=== PATIENT | female | born 1930 | race Caucasian/White ===

== ENCOUNTER 2019-08-31 14:58 | Emergency (ER) | payer MEDICARE, OTHER ==
--- NOTE | 2019-08-31 16:22 | EDM.PDOC ---
ED HPI GENERAL MEDICAL PROBLEM - General Chief Complaint: Syncope Stated Complaint: SYNCOPE/FALL-HEAD INJURY Time Seen by Provider: 08/31/19 15:24 Source of Information: Reports: Patient, RN Notes Reviewed - History of Present Illness INITIAL COMMENTS - FREE TEXT/NARRATIVE: 88-year-old female presents to ED today for evaluation after suffering a syncopal event yesterday. He was doing some housecleaning. He had some type of cleaning towel or mop attached to her broom so she could "white the dust off of the soliz of her home". While she was doing that she started to feel lightheaded and dizzy. She states she was going this finding a chair to sit down but her legs gave out on her before she could do that and she fell onto her left buttock. She states she is able to "get up right away" to a recliner and rested for a period of time and since then has felt back to normal. She's had no chest pain nausea or vomiting. She states she did not hit her head and has no head or neck discomfort. She does sometimes get lightheaded and dizzy when standing up in scientology but has not had to the point of near syncope like she did yesterday. She has no known history for coronary artery disease, hypertension or diabetes. She takes very few medications, mostly vitamins. - Related Data Allergies Allergy/AdvReac Type Severity Reaction Status Date / Time No Known Allergies Allergy Verified 08/31/19 15:27 Home Meds: Home Meds Ascorbate Calcium [Vitamin C] 500 mg PO DAILY 08/31/19 [History] Aspirin [Halfprin] 81 mg PO DAILY 08/31/19 [History] Cholecalciferol (Vitamin D3) [Vitamin D] 1,000 unit PO DAILY 08/31/19 [History] Chondroitin Sulfate A Sodium [Chondroitin Sulfate] 150 mg PO DAILY 08/31/19 [ History] Ginkgo Biloba 80 mg PO DAILY 08/31/19 [History] Glucosamine/D3/Boswellia Brunilda [Glucosamine Complex Tablet] 1,500 mg PO DAILY [History] Levothyroxine [Synthroid] 50 mcg PO DAILY 08/31/19 [History] Magnesium 400 mg PO DAILY 08/31/19 [History] Multivitamin [Multivitamins] 1 cap PO DAILY 08/31/19 [History] Simvastatin 5 mg PO DAILY 08/31/19 [History] Past Medical History Cardiovascular History: Reports: High Cholesterol Social & Family History - Tobacco Use Smoking Status *Q: Never Smoker - Caffeine Use Caffeine Use: Reports: Coffee - Recreational Drug Use Recreational Drug Use: No ED ROS GENERAL - Review of Systems Review Of Systems: See Below Constitutional: Denies: Fever, Chills, Diaphoresis HEENT: Reports: No Symptoms Respiratory: Denies: Shortness of Breath Cardiovascular: Denies: Chest Pain GI/Abdominal: Denies: Abdominal Pain, Nausea, Vomiting Musculoskeletal: Denies: Shoulder Pain, Arm Pain, Back Pain Skin: Denies: Rash Neurological: Reports: Dizziness. Denies: Headache (Gone), Numbness, Tingling, Trouble Speaking, Difficulty Walking, Weakness - Physical Exam Exam: See Below General Appearance: Alert, No Apparent Distress Eye Exam: Bilateral Eye: PERRL Throat/Mouth: Normal Inspection, Normal Oropharynx Head Exam: Atraumatic Neck: Supple Respiratory/Chest: No Respiratory Distress, Lungs Clear, Normal Breath Sounds, Chest Non-Tender Cardiovascular: Regular Rate, Rhythm GI/Abdominal: Soft, Non-Tender Neuro Exam (Abbreviated): Alert, Oriented Back Exam: Normal Inspection. No: Paraspinal Tenderness, Vertebral Tenderness Extremities: Normal Inspection, Normal Range of Motion Skin Exam: Warm, Dry, Normal Color EKG INTERPRETATION EKG Date: 08/31/19 Rhythm: NSR Niotaze: Normal P-Wave: Present QRS: Other (q waves lead III, no st elevation or depresion.) ST-T: Normal Course - Vital Signs Last Recorded V/S: Last Vital Signs Temp 96.5 F 08/31/19 15:39 Pulse 91 08/31/19 15:39 Resp 20 08/31/19 15:39 BP 120/105 H 08/31/19 15:39 Pulse Ox 100 08/31/19 15:39 - Orders/Labs/Meds Labs: Laboratory Tests 08/31/19 08/31/19 Range/Units 15:56 15:56 WBC 6.30 (3.98-10.04) K/mm3 RBC 4.12 (3.98-5.22) M/mm3 Hgb 11.9 (11.2-15.7) gm/dl Hct 37.3 (34.1-44.9) % MCV 90.5 (79.4-94.8) fl MCH 28.9 (25.6-32.2) pg MCHC 31.9 L (32.2-35.5) g/dl RDW Std Deviation 44.3 (36.4-46.3) fL Plt Count 242 (182-369) K/mm3 MPV 9.7 (9.4-12.3) fl Neut % (Auto) 64.4 (34.0-71.1) % Lymph % (Auto) 24.3 (19.3-51.7) % Bremer % (Auto) 8.4 (4.7-12.5) % Eos % (Auto) 2.2 (0.7-5.8) Baso % (Auto) 0.5 (0.1-1.2) % Neut # (Auto) 4.06 (1.56-6.13) K/mm3 Lymph # (Auto) 1.53 (1.18-3.74) K/mm3 Bremer # (Auto) 0.53 H (0.24-0.36) K/mm3 Eos # (Auto) 0.14 (0.04-0.36) K/mm3 Baso # (Auto) 0.03 (0.01-0.08) K/mm3 Sodium 136 (136-145) mEq/L Potassium 4.2 (3.5-5.1) mEq/L Chloride 103 (98-107) mEq/L Carbon Dioxide 24 (21-32) mEq/L Anion Gap 13.2 (5-15) BUN 17 (7-18) mg/dL Creatinine 1.1 H (0.55-1.02) mg/dL Est Cr Clr Drug Dosing 24.90 mL/min Estimated GFR (MDRD) 47 (>60) mL/min BUN/Creatinine Ratio 15.5 (14-18) Glucose 103 (83-115) mg/dL Calcium 8.5 (8.5-10.1) mg/dL Total Bilirubin 0.2 (0.2-1.0) mg/dL AST 18 (15-37) U/L ALT 22 (14-59) U/L Alkaline Phosphatase 76 (46-116) U/L Total Protein 6.4 (6.4-8.2) g/dl Albumin 3.1 L (3.4-5.0) g/dl Globulin 3.3 gm/dL Albumin/Globulin Ratio 0.9 L (1-2) - Re-Assessments/Exams Free Text/Narrative Re-Assessment/Exam: 08/31/19 17:18 Labs, EKG are normal, have ordered outpatient carotid ultrasound. Discharge instructions as documented Departure - Departure Time of Disposition: 16:43 Disposition: Home, Self-Care 01 Condition: Fair Clinical Impression: Near syncope - Discharge Information Instructions: Near-Syncope, [id number] Referrals: Grady Cheng MD [Primary Care Provider] - Forms: ED Department Discharge Additional Instructions: Drink plenty of water to maintain hydration, if you do feel yourself getting lightheaded or dizzy again be sure to sit or lie down clear as possible so you do not pass out, fall or hurt yourself. An order for carotid ultrasound has been submitted to radiology. They will give a time for you to come in and have that done. Follow-up with Dr. Ortega in about one week for results and also recheck to see how you are doing. Return to ED as needed if symptoms worsening in any way Sepsis Event Note - Evaluation Sepsis Screening Result: No Definite Risk - Focused Exam Vital Signs: Vital Signs Temp Pulse Resp BP Pulse Ox 08/31/19 15:39 96.5 F 91 20 120/105 H 100 Date Exam was Performed: 08/31/19 Time Exam was Performed: 17:16
== END 2019-08-31 16:50 | disposition home or self-care (01) ==
LOC: JD.ED 14:58
DX: R55 Syncope and collapse (principal); E78.00 Pure hypercholesterolemia, unspecified; Z79.899 Other long term (current) drug therapy; Z79.82 Long term (current) use of aspirin
CPT/HCPCS: 36415; 80053; 85025; 99282; 99284-25